=== PATIENT | female | born 1960 | race African-American/Black ===

== ENCOUNTER 2022-05-06 09:00 | Inpatient (IN) | payer BC ==
[~2022-05-06] VITALS: Ht 170.2 cm; Wt 116.9 kg
[~2022-05-06 09:00] MED LIST: ACET-1080 PO; ADVAIR; AMLO-489 PO; ATO40T PO; HYDR25TA5 PO; IBUP800T26 PO; LIDO5DIS21 TOP; METH750T22 PO; MORP30TA5 PO; OXY5T PO; OXYB5TAB24; PANT40TA2 PO; POTA-167 OR; PROAIR; TRIAMTERENE/HCTZ; [UNRECOGNIZED DRUG - CODE] PO
[2022-05-06] MEDS ORDERED: ceFAZolin 1GM/50ML 100 ML IV ONE (09:11)
[2022-05-06] MEDS ORDERED: PROPOFOL 10 MG/ML 20 ML IV ONE ×2 (10:21→12:03)
[2022-05-06] MEDS ORDERED: KETOROLAC TROMETH 30 MG/ML 1ML VIAL ONE (10:22)
[2022-05-06] MEDS ORDERED: GLYCOPYRROLATE 0.2 MG/ML 1ML VIAL ONE (10:22)
[2022-05-06] MEDS ORDERED: DexAMETHasone SOD PHOS 10MG/1ML VIAL INJ ONE (10:22)
[2022-05-06] MEDS ORDERED: ONDANSETRON HCL 4 MG/2 ML VIAL ONE (10:22)
[2022-05-06] MEDS ORDERED: DexAMETHasone SOD PHOS 4 MG/1ML SDV INJ ONE (11:06)
[2022-05-06] MEDS ORDERED: BUPIVACAINE 0.25% INJ 50ML VIAL ONE (11:06)
[2022-05-06] MEDS ORDERED: KETAMINE HCL 10 ML ONE (11:08)
[2022-05-06] MEDS ORDERED: TRANEXAMIC ACID 20 ML ONE (11:14)
[2022-05-06] MEDS ORDERED: VANCOMYCIN HCL 1000 MG VL ONE (11:15)
[2022-05-06] MEDS ORDERED: ROPIVACAINE 0.5% (5MG/ML) 20ML AMPULE IJ ONE (11:59)
[2022-05-06] MEDS ORDERED: SODIUM CHLORIDE LOCK 10 ML ONE (12:00)
[2022-05-06] MEDS ORDERED: PHENYLEPHRINE HCL 10 MG/ML VL ONE (12:00)
[2022-05-06] MEDS ORDERED: SENNA 8.6 MG TAB PO PRN (14:00)
[2022-05-06] MEDS ORDERED: oxyCODONE HCL 5MG TAB PO PRN (14:00)
[2022-05-06] MEDS ORDERED: HYDROmorphone HCL 2 MG/ML VL/or syr IV PRN (14:00)
[2022-05-06] MEDS ORDERED: MORPHINE SULFATE INJ 2 MG/ml SYRG IV PRN (14:00)
[2022-05-06] MEDS ORDERED: NITROGLYCERIN 0.4 MG SL TAB SL PRN (14:00)
[2022-05-06] MEDS ORDERED: ALBUTEROL SULF 2.5 MG/0.5ML(0.5%) NEB SOLN NEB PRN (14:00)
[2022-05-06] MEDS ORDERED: MEPERIDINE HCL (25 MG/ML) 1ML VIAL IV ONE (14:30)
[2022-05-06] MEDS ORDERED: MEPERIDINE HCL (25 MG/ML) 1ML VIAL ONE (14:40)
[2022-05-06] MEDS: D5W/LACTATED RINGERS 1,000 ML IV SCH (15:10)
[2022-05-06] MEDS: ACETAMINOPHEN 325 MG TAB PO SCH ×2 (17:40→23:48)
[2022-05-06 18:01] VITALS: BP 151/74
[2022-05-06] MEDS: KETOROLAC TROMETH 30 MG/ML 1ML VIAL IV SCH ×2 (18:20→23:48)
[2022-05-06] MEDS: oxyCODONE HCL 5MG TAB PO PRN (20:10)
[2022-05-06] MEDS: ceFAZolin 2 GM in D5W 5% 100 ML IV SCH (20:19)
[2022-05-06 20:56] VITALS: BP 151/74
[2022-05-06] MEDS: DOCUSATE SOD 100 MG CAP PO SCH (21:36)
[2022-05-06] MEDS: MORPHINE SULF 30 mg ER tab PO SCH (21:38)
[2022-05-06] MEDS: PREGABALIN 25 MG CAP PO SCH (21:57)
[2022-05-06 22:00] VITALS: BP 136/61
[2022-05-06] MEDS ORDERED: ATORVASTATIN 20 MG TAB PO SCH (22:00)
[2022-05-06] MEDS ORDERED: ALBUTEROL MEDNEB 2.5 mg/3ml NEB ONE (23:24)
[2022-05-07] MEDS: ceFAZolin 2 GM in D5W 5% 100 ML IV SCH (03:11)
[2022-05-07] MEDS: KETOROLAC TROMETH 30 MG/ML 1ML VIAL IV SCH ×3 (05:22→18:00)
[2022-05-07] MEDS: ACETAMINOPHEN 325 MG TAB PO SCH ×3 (05:22→18:00)
[2022-05-07 07:28] LABS: BUN/Creatinine Ratio 12.2; Calcium 8.3 mg/dL (8.5-10.1); Potassium 3.9 mmol/L (3.5-5.1)
[2022-05-07 07:47] LABS: Basophils # (auto) 0 10 ^3/uL (0-0.2); Basophils % (auto) 0.2 % (0.0-2.0); Eosinophils # (auto) 0 10 ^3/uL (0-0.8); Hematocrit 36.2 % (36.0-46.0); Hemoglobin 11.5 g/dL (12.2-16.2); Lymphocytes # (auto) 1.1 10 ^3/uL (0.4-5.4); Lymphocytes % (auto) 10.7 % (10.0-50.0); Mean Corpuscular Hemoglobin 25.5 pg (28.0-32.0); Mean Corpuscular Hgb Conc. 31.7 g/dL (32.0-36.0); Mean Corpuscular Volume 80.4 fL (80.0-100.0); Monocytes % (auto) 9.2 % (0.0-12.0); Neutrophils # (auto) 8.4 10 ^3/uL (1.6-8.6); Neutrophils % (auto) 79.9 % (37.0-80.0); Nucleated Red Blood Cells % 0.1 %; Red Cell Distribution Width 15.5 % (11.8-14.3); White Blood Cell 10.5 10^3/uL (4.4-10.8)
[2022-05-07 08:00] VITALS: BP 121/54
[2022-05-07] MEDS: PREGABALIN 25 MG CAP PO SCH (08:57)
[2022-05-07] MEDS: DOCUSATE SOD 100 MG CAP PO SCH (08:58)
[2022-05-07] MEDS: MORPHINE SULF 30 mg ER tab PO SCH (08:58)
[2022-05-07] MEDS ORDERED: ASPirin 81 mg TAB PO SCH (10:00)
[2022-05-07] MEDS ORDERED: PANTOPRAZOLE 40 MG TAB PO SCH (10:00)
[2022-05-07] MEDS: D5W/LACTATED RINGERS 1,000 ML IV SCH ×2 (10:00)
[2022-05-07] MEDS ORDERED: METHOCARBAMOL 500 MG TAB PO SCH (10:00)
[2022-05-07] MEDS ORDERED: HCTZ 25 MG TAB PO SCH (10:00)
[2022-05-07] MEDS ORDERED: POTASSIUM CHL 10 Meq TABLET PO SCH (10:00)
[2022-05-07] MEDS ORDERED: PATIENTS OWN MEDICATION (Atorvastatin Calcium (Lipitor) 40 MG) PO SCH (10:00)
[2022-05-07] MEDS ORDERED: PATIENTS OWN MEDICATION (Methocarbamol 750 MG) PO SCH (10:00)
[2022-05-07] MEDS ORDERED: amLODIPine BESYLATE 5 MG TAB PO SCH (10:00)
[2022-05-07 11:43] VITALS: BP 121/54
[2022-05-07 12:00] VITALS: BP 145/59
[2022-05-07] MEDS: oxyCODONE HCL 5MG TAB PO PRN (15:49)
[2022-05-07 16:00] VITALS: BP 153/48
[2022-05-07] MEDS ORDERED: ALBUTEROL MEDNEB 2.5 mg/3ml NEB ONE (23:54)
== END 2022-05-07 18:27 | disposition home health service (06) | DRG 470 ==
LOC: SUR 09:00 → TELE 13:53 → TELE-WESTW 18:18
PROVIDERS: ADMIT Orthopaedic Surgery; ATTEND Orthopaedic Surgery
PROC: 0SRC069 Replacement of Right Knee Joint with Oxidized Zirconium on Polyethylene Synthetic Substitute, Cemented, Open Approach (ICD-10-PCS; principal; 2022-05-06 11:26)
DX: M17.11 Unilateral primary osteoarthritis, right knee (principal); Z20.822 Contact with and (suspected) exposure to COVID-19
CPT/HCPCS: 36415; 73562; 80048; 85025; 86850; 86900; 86901; 94640; 97110; 97163; G0378; J0690; J1100; J1885; J2405; J2704; J3490; J7060

== ENCOUNTER 2022-05-28 14:53 | Emergency (ER) | payer BC ==
[2022-05-28] MEDS ORDERED: NOREPINEPHRINE 8 MG/250ML KIT 250 ML IV ONE (15:12)
[2022-05-28] MEDS ORDERED: EPINEPHrine HCL 1 MG/10 ML SYRG ONE ×2 (15:14→15:27)
[2022-05-28] MEDS: NOREPINEPHRINE 8 MG/250ML KIT 250 ML IV SCH ×2 (15:18→21:58)
[2022-05-28] MEDS ORDERED: EPINEPHrine HCL 250 ML IV ONE ×3 (15:21→15:30)
[2022-05-28 15:51] VITALS: BP 155/102
== END 2022-05-28 17:16 ==
LOC: ER 14:53 → EDBD 14:53 → ER 17:16
DX: I46.9 Cardiac arrest, cause unspecified (principal); R41.82 Altered mental status, unspecified; I21.9 Acute myocardial infarction, unspecified; J45.909 Unspecified asthma, uncomplicated; E78.5 Hyperlipidemia, unspecified; I10 Essential (primary) hypertension; Z98.51 Tubal ligation status; Z90.710 Acquired absence of both cervix and uterus
CPT/HCPCS: 31500; 92950; 93005; 99291; J0171